=== PATIENT | male | born 1935 | race Caucasian/White ===

== ENCOUNTER 2019-11-27 11:38 | Inpatient (IN) | payer MEDICARE, OTHER ==
[2019-11-27] MEDS ORDERED: Acetaminophen 325 MG Tab PO PRN (12:30)
[2019-11-27] MEDS ORDERED: Ondansetron 4 MG Tab.DIS PO PRN (12:30)
[2019-11-27] MEDS ORDERED: Albuterol/Ipratropium 3.0-0.5 MG/3 ML Neb Soln NEB PRN (12:30)
[2019-11-27] MEDS ORDERED: Sodium Chloride 0.9% 10 ML Syringe FLUSH PRN (12:30)
[2019-11-27] MEDS ORDERED: Albuterol 0.083% 2.5 MG/3 ML Neb Soln NEB PRN (12:30)
[2019-11-27] MEDS ORDERED: Ondansetron 4 MG/2 ML SDV IVPUSH PRN (12:30)
[2019-11-27] MEDS ORDERED: TRIAMCINOLONE ACETONIDE 0.025% TOP PRN (13:01)
--- NOTE | 2019-11-27 13:30 | PCM.HP ---
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 Patient and report that he has been seen in clinic in [place] and was being worked up for cardiac etiology for his shortness of breath. Report that he had an echocardiogram in August of this year. Reports that he was started on Lasix and potassium replacement. States that he had significant constipation from the potassium so taking the Lasix about 3 weeks ago. States that his weight has been stable since that time and has remained with him at 3 pound range. He reports that he can barely walk 50 feet without stopping to catch his breath. States that he would get winded and has to rest for about 5 minutes before feeling better to be able to ambulate again. Reports intermittent cough without sputum production. Denies any weight gain, weight loss, chest pain, diaphoresis, neck pain, shoulder pain, fevers, chills, nausea, vomiting, diarrhea, dysuria, hematuria, edema, or any new symptoms. That he took medications for constipation for a few days but over the past 3 to 4 days, his bowels have been moving normally. #Tobacco, alcohol, or illicit drug use. In the clinic, patient was noted to have normal WBC count of 8.3, hemoglobin of 16.1, and platelet count of 219. His creatinine was at baseline of 1.7 with normal anion gap and CO2 of 28. Chest x-ray was obtained which showed consolidation throughout the right lung and to a lesser extent in the left lung base concerning for multifocal pneumonia. Also showed cardiomegaly without any pneumothorax. O2 saturation was in the 80s and required 2 L of oxygen to bring O2 saturation to 91. Patient was referred to us for admission. - Related Data Allergies/Adverse Reactions: Allergies Allergy/AdvReac Type Severity Reaction Status Date / Time No Known Allergies Allergy Verified 08/22/19 09:41 Home Medications: Home Meds Aspirin [Ecotrin] 81 mg PO DAILY 09/29/14 [History] Metoprolol Succinate [Toprol XL] 200 mg PO DAILY 09/29/14 [History] atorvaSTATin Calcium [Atorvastatin Calcium] 80 mg PO BEDTIME 09/29/14 [History] Docusate Sodium [Colace] 100 mg PO BEDTIME 11/27/19 [History] Furosemide 40 mg PO DAILY 11/27/19 [History] Triamcinolone Acetonide [Triamcinolone Acetonide 0.025%] 1 applic TOP ASDIRECTED PRN 11/27/19 [History] Warfarin Sodium [Jantoven] 2.5 mg PO DAILY 11/27/19 [History] Past Medical History HEENT History: Reports: Cataract, Hard of Hearing Cardiovascular History: Reports: Afib, CAD, Hypertension, AL, Stents Respiratory History: Reports: SOB Gastrointestinal History: Reports: Chronic Constipation, GI Bleed Genitourinary History: Reports: BPH, Urinary Incontinence Musculoskeletal History: Reports: Arthritis Neurological History: Reports: None Psychiatric History: Reports: None Endocrine/Metabolic History: Reports: Obesity/BMI 30+ Hematologic History: Reports: None Immunologic History: Reports: None Oncologic (Cancer) History: Reports: Malignant Melanoma, Prostate Dermatologic History: Reports: Psoriasis - Infectious Disease History Infectious Disease History: Reports: None - Past Surgical History Head Surgeries/Procedures: Reports: None HEENT Surgical History: Reports: Cataract Surgery Male Surgical History: Reports: TURP-Transurethral Resection of Prostate Social & Family History - Family History Family Medical History: Noncontributory H&P Review of Systems - Review of Systems: Review Of Systems: Comprehensive ROS is negative, except as noted in HPI. Exam - Exam Exam: See Below - Vital Signs Vital Signs: Last Vital Signs Temp 97.2 F 11/27/19 12:30 Pulse 71 11/27/19 12:30 Resp 24 H 11/27/19 12:30 BP 133/69 11/27/19 12:30 Pulse Ox 88 L 11/27/19 12:30 - Exam Quality Assessment: Supplemental Oxygen (2L via [place]) General: Alert, Oriented, Cooperative, Mild Distress HEENT: Conjunctiva Clear, Hearing Intact, Mucosa Moist & [place], Pupils Equal, Pupils Reactive, PERRLA Neck: Supple, Trachea Midline Lungs: Rhonchi (In right lung diffusely and in left lung base. ) Cardiovascular: Regular Rate, Irregular Rhythm GI/Abdominal Exam: Normal Bowel Sounds, Soft, Non-Tender, No Distention Extremities: Normal Inspection, Non-Tender, No Pedal Edema Peripheral Pulses: 2+: Radial (L), Radial (R), Dorsalis Pedis (L), Dorsalis Pedis (R) Skin: Warm, Dry, Intact Neurological: Cranial Nerves Intact Neuro Extensive - Mental Status: Alert, Oriented x3, Normal Mood/Affect, Normal Cognition, Memory Intact Psychiatric: Alert, Normal Affect, Normal Mood - Patient Data Tawanda Results Last 24 hrs: Microbiology 11/27/19 12:55 Anaerobic Blood Culture - Final Blood - Venous - Lab Draw *Q Meaningful Use (ADM) - VTE *Q VTE Anticoagulation Contraindications: Alternative TX Request PT - Problem List (1) Multifocal pneumonia SNOMED Code(s): 261364482 ICD Code: J18.9 - PNEUMONIA, UNSPECIFIED ORGANISM Status: Acute Current Visit: Yes (2) Acute respiratory failure with hypoxia SNOMED Code(s): 10574115, 366290621 ICD Code: J96.01 - ACUTE RESPIRATORY FAILURE WITH HYPOXIA Status: Acute Current Visit: Yes (3) CAD (coronary artery disease) SNOMED Code(s): 94764300 ICD Code: I25.10 - ATHSCL HEART DISEASE OF [place] CORONARY ARTERY W/O ANG PCTRS Status: Acute Current Visit: Yes (4) Diastolic heart failure SNOMED Code(s): 875027397 ICD Code: I50.30 - UNSPECIFIED DIASTOLIC (CONGESTIVE) HEART FAILURE Status : Acute Current Visit: Yes (5) Dyslipidemia SNOMED Code(s): 201182850 ICD Code: E78.5 - HYPERLIPIDEMIA, UNSPECIFIED Status: Acute Current Visit : Yes (6) Obesity SNOMED Code(s): 086488591, 079511576 ICD Code: E66.9 - OBESITY, UNSPECIFIED Status: Acute Current Visit: Yes (7) Atrial fibrillation SNOMED Code(s): 42541885 ICD Code: I48.91 - UNSPECIFIED ATRIAL FIBRILLATION Status: Acute Current Visit: Yes (8) Chronic anticoagulation SNOMED Code(s): 783896867 ICD Code: Z79.01 - USP (CURRENT) USE OF ANTICOAGULANTS Status: Acute Current Visit: Yes Problem List Initiated/Reviewed/Updated: Yes Orders Last 24hrs: Active Orders 24 hr Category Date Time Status Patient Status [ADT] Routine ADT 11/27/19 11:52 Active Height and Weight [RC] DAILY Care 11/27/19 12:30 Active Intake and Output [RC] QSHIFT Care 11/27/19 12:31 Active Oxygen Therapy [RC] .PRN Care 11/27/19 12:30 Active Peripheral IV Care [RC] . DIRECTED Care 11/27/19 12:32 Active RT Aerosol Therapy [RC] ASDIRECTED Care 11/27/19 12:33 Active Up With Assistance [RC] ASDIRECTED Care 11/27/19 12:30 Active VTE/DVT Education [RC] PER UNIT ROUTINE Care 11/27/19 12:30 Active Vital Signs [RC] Q4H Care 11/27/19 12:30 Active 2 Gram Sodium Diet [DIET] Diet 11/27/19 Lunch Active BASIC METABOLIC PANEL,BMP [CHEM] AM Lab 11/28/19 05:11 Ordered CBC W/O DIFF,HEMOGRAM [HEME] AM Lab 11/28/19 05:11 Ordered CULTURE BLOOD [BC] Stat Lab 11/27/19 12:53 Received CULTURE BLOOD [BC] Stat Lab 11/27/19 12:55 Results CULTURE SPUTUM + SMEAR [RM] Stat Lab 11/27/19 12:30 Ordered INR,PT,PROTHROMBIN TIME [COAG] DAILY Lab 11/28/19 06:00 Ordered INR,PT,PROTHROMBIN TIME [COAG] DAILY Lab 11/29/19 06:00 Ordered INR,PT,PROTHROMBIN TIME [COAG] DAILY Lab 11/30/19 06:00 Ordered INR,PT,PROTHROMBIN TIME [COAG] DAILY Lab 12/01/19 06:00 Ordered INR,PT,PROTHROMBIN TIME [COAG] DAILY Lab 12/02/19 06:00 Ordered INR,PT,PROTHROMBIN TIME [COAG] DAILY Lab 12/03/19 06:00 Ordered INR,PT,PROTHROMBIN TIME [COAG] DAILY Lab 12/04/19 06:00 Ordered Acetaminophen [Tylenol] Med 11/27/19 12:30 Active 650 mg PO Q6H PRN Albuterol [Proventil Neb Soln] Med 11/27/19 12:30 Active 2.5 mg NEB Q2H PRN Albuterol/Ipratropium [DuoNeb 3.0-0.5 MG/3 ML] Med 11/27/19 12:30 Active 3 ml NEB Q4H PRN Aspirin [Halfprin] Med 11/28/19 09:00 Ordered 81 mg PO DAILY Azithromycin [Zithromax] 500 mg Med 11/27/19 13:00 Active Sodium Chloride 0.9% [Normal Saline (AdvBag)] 250 ml IV Q24H Docusate Sodium [Colace] Med 11/27/19 21:00 Ordered 100 mg PO BEDTIME Docusate Sodium/Sennosides [Senna Plus] Med 11/27/19 12:30 Active 1 tab PO BEDTIME PRN Furosemide [Lasix] Med 11/28/19 09:00 Ordered 40 mg PO DAILY Metoprolol Succinate [Toprol XL] Med 11/28/19 09:00 Ordered 200 mg PO DAILY Ondansetron [Zofran ODT] Med 11/27/19 12:30 Active 4 mg PO Q6H PRN Ondansetron [Zofran] Med 11/27/19 12:30 Active 4 mg IVPUSH Q6H PRN Pharmacy to Dose - Warfarin Med 11/27/19 13:15 Ordered 1 dose .XX ASDIRECTED Sodium Chloride 0.9% [Saline Flush] Med 11/27/19 12:30 Active 10 ml FLUSH ASDIRECTED PRN Triamcinolone Acetonide [Triamcinolone Acetonide 0.025% Med 11/27/19 13:01 Ordered ] 1 applic TOP ASDIRECTED PRN atorvaSTATin Calcium [Atorvastatin Calcium] Med 11/27/19 21:00 Ordered 80 mg PO BEDTIME cefTRIAXone [Rocephin] 1 gm Med 11/27/19 14:00 Active Sodium Chloride 0.9% [Normal Saline] 50 ml IV Q24H Anticoagulation Contraindications VTE [AST] Per Unit Oth 11/27/19 12:30 Ordered Routine Blood Culture x2 Reflex Set [OM.PC] Stat Oth 11/27/19 12:30 Ordered Peripheral IV Insertion Adult [OM.PC] Routine Oth 11/27/19 12:30 Ordered Resuscitation Status Routine Resus Stat 11/27/19 12:30 Ordered Medication Orders Acetaminophen (Tylenol) 650 mg PO Q6H PRN PRN Reason: Pain (Mild 1-3)/fever Albuterol (Proventil Neb Soln) 2.5 mg NEB Q2H PRN PRN Reason: shortness of breath/wheezing Albuterol/Ipratropium (Duoneb 3.0-0.5 Mg/3 Ml) 3 ml NEB Q4H PRN PRN Reason: shortness of breath/wheezing Aspirin (Halfprin) 81 mg PO DAILY [facility] Furosemide (Lasix) 40 mg PO DAILY [facility] Azithromycin 500 mg/ Sodium (Chloride) 250 mls @ 250 mls/hr IV Q24H [facility] Ceftriaxone Sodium 1 gm/ (Sodium Chloride) 50 mls @ 100 mls/hr IV Q24H [facility] Non-Formulary Medication (Atorvastatin Calcium [Atorvastatin Calcium]) 80 mg PO BEDTIME ZOE Non-Formulary Medication (Docusate Sodium [Colace]) 100 mg PO BEDTIME ZOE Non-Formulary Medication (Metoprolol Succinate [Toprol Xl]) 200 mg PO DAILY ZOE Non-Formulary Medication (Triamcinolone Acetonide [Triamcinolone Acetonide 0.025 %]) 1 applic TOP ASDIRECTED PRN PRN Reason: Dryness Ondansetron HCl (Zofran) 4 mg IVPUSH Q6H PRN PRN Reason: Nausea/Vomiting Ondansetron HCl (Zofran Odt) 4 mg PO Q6H PRN PRN Reason: nausea, able to take PO Senna/Docusate Sodium (Senna Plus) 1 tab PO BEDTIME PRN PRN Reason: Constipation Sodium Chloride (Saline Flush) 10 ml FLUSH ASDIRECTED PRN PRN Reason: Keep Vein Open Warfarin Sodium (Pharmacy To Dose - Warfarin) 1 dose .XX ASDIRECTED [facility] Assessment/Plan Comment:: #Multifocal pneumonia #Acute respiratory with hypoxia patient with auscultation throughout the right lung and consolidation in the left lung base concerning for multifocal pneumonia. With associated hypoxia, responded to O2 via nasal cannula Obtain blood cultures Sputum culture Incentive spirometer and flutter valve Start azithromycin and Zosyn Supplemental oxygen, titrate SPO2 greater than 90% CT chest to better characterize lung is given duration of his respiratory symptoms #Atrial fibrillation #On chronic anticoagulation F Continue beta-milton and have pharmacy dose warfarin #CAD #Diastolic heart failure Hypertension #Dyslipidemia Continue medications DVT prophylaxis: On warfarin GI prophylaxis: Cardiac diet CODE STATUS: Full code per patient preference.
[2019-11-27] MEDS: cefTRIAXone 1 GM in Sodium Chloride 0.9% 50 ML IV SCH (13:38)
[2019-11-27] MEDS: Azithromycin 500 MG in Sodium Chloride 0.9% 250 ML IV SCH (14:07)
--- NOTE | 2019-11-27 15:13 | CT ---
EXAMINATION: Chest wo Cont SEX: Male AGE: 84 years CLINICAL HISTORY: 84-year-old male with prostate cancer and "RESPIRATORY FAILURE". No previous CXR or CT scans of the chest immediately available at this institution. Scan technique: Volume acquisition of data screening unenhanced CT scan of the chest (bony thorax, lungs and mediastinum) obtained without oral or IV contrast while patient was lying supine on the Siemens multislice scanner [place], [place]. All data archived in the PACS system for storage, reformatting axial/sagittal/coronal planes and study. Interpretation: ABNORMAL. 1. *Extensive, multilobular confluent "groundglass" density involving both lung mcgregor (R>L). Underlying air bronchograms and some "shotty" mediastinal lymphadenopathy. Fever? Cough? Acute abnormality like Covid 19 infection a differential consideration with chronic interstitial lung disease. Clinical correlation? 2. No dependent pleural effusion. No atelectasis, collapse or pneumothorax. 3. Coronary artery calcifications. Mild cardiomegaly. No pulmonary vascular congestion/cephalization of flow or alveolar edema i.e no indication of heart failure or CHF. 4. Atheromatous calcifications normal caliber thoracic aorta. Patulous esophagus. Arthritic spine. 5. No suspicious lung nodules or mass lesion. 6. Gallbladder, unenhanced liver, stomach, spleen, and pancreas are unremarkable. CONCLUSION: Suspicious, multilobar "groundglass" appearance lung mcgregor (see above). No indication heart failure or lung malignancy.
[2019-11-27] MEDS: atorvaSTATin 20 MG Tab PO SCH (20:55)
[2019-11-27] MEDS: Docusate Sodium 100 MG Cap PO SCH (21:01)
[2019-11-28 06:58] LABS: ANION GAP 10.6 mEq/L (7-13)
[2019-11-28] MEDS: Aspirin 81 MG Tab.EC PO SCH (08:30)
[2019-11-28] MEDS: Metoprolol Succinate 50 MG Tab.ER PO SCH (08:30)
[2019-11-28] MEDS: Furosemide 40 MG Tab PO SCH (08:30)
--- NOTE | 2019-11-28 09:18 | PCM.PN ---
- General Info Date of Service: 11/28/19 Admission Dx/Problem (Free Text): Admission Diagnosis/Problem Admission Diagnosis/Problem Pneumonia Subjective Update: Patient continues to require oxygen, now between 4 to 5 L to keep O2 saturations above 92%. Reports decreased cough. Has not been able to provide adequate sputum sample. He denies fevers, chills, nausea, vomiting, diarrhea, constipation, dysuria, hematuria, edema, or any new symptoms. - Patient Data Vitals - Most Recent: Last Vital Signs Temp 98.7 F 11/28/19 07:49 Pulse 76 11/28/19 08:30 Resp 24 H 11/28/19 07:49 BP 101/62 11/28/19 08:30 Pulse Ox 90 L 11/28/19 07:49 Weight - Most Recent: 232 lb 9.6 oz I&O - Last 24 Hours: Intake & Output 11/27/19 11/28/19 11/28/19 22:59 06:59 14:59 Intake Total 488 200 Output Total 600 200 Balance -112 0 Lab Results Last 24 Hours: Laboratory Results - last 24 hr 11/27/19 11/28/19 11/28/19 Range/Units 19:40 06:10 06:10 WBC 8.2 (5.0-10.0) 10^3/uL RBC 4.02 L (4.6-6.2) 10^6/uL Hgb 13.9 L D (14.0-18.0) g/dL Hct 41.7 (40.0-54.0) % MCV 103.7 H D (80-100) fL MCH 34.6 H (27.0-34.0) pg MCHC 33.3 (33.0-35.0) g/dL Plt Count 178 D (150-450) 10^3/uL PT (9.0-12.0) SEC INR (0.9-1.2) Sodium 141 (136-145) mmol/L Potassium 4.6 (3.5-5.1) mmol/L Chloride 107 (98-107) mmol/L Carbon Dioxide 28 (21-32) mmol/L Anion Gap 10.6 (7-13) mEq/L BUN 37 H (7-18) mg/dL Creatinine 1.56 H (0.70-1.30) mg/dL Est Cr Clr Drug Dosing 38.69 mL/min Estimated GFR (MDRD) 43 Glucose 85 (74-99) mg/dL Calcium 8.2 L (8.5-10.1) mg/dL SARS-CoV-2 RNA (RT-PCR) Negative (NEGATIVE) 11/28/19 Range/Units 06:10 WBC (5.0-10.0) 10^3/uL RBC (4.6-6.2) 10^6/uL Hgb (14.0-18.0) g/dL Hct (40.0-54.0) % MCV (80-100) fL MCH (27.0-34.0) pg MCHC (33.0-35.0) g/dL Plt Count (150-450) 10^3/uL PT 32.0 H D (9.0-12.0) SEC INR 3.4 H (0.9-1.2) Sodium (136-145) mmol/L Potassium (3.5-5.1) mmol/L Chloride (98-107) mmol/L Carbon Dioxide (21-32) mmol/L Anion Gap (7-13) mEq/L BUN (7-18) mg/dL Creatinine (0.70-1.30) mg/dL Est Cr Clr Drug Dosing mL/min Estimated GFR (MDRD) Glucose (74-99) mg/dL Calcium (8.5-10.1) mg/dL SARS-CoV-2 RNA (RT-PCR) (NEGATIVE) Tawanda Results Last 24 Hours: Microbiology 11/27/19 12:55 Anaerobic Blood Culture - Final Blood - Venous - Lab Draw Med Orders - Current: Current Medications Acetaminophen (Tylenol) 650 mg PO Q6H PRN PRN Reason: Pain (Mild 1-3)/fever Albuterol (Proventil Neb Soln) 2.5 mg NEB Q2H PRN PRN Reason: shortness of breath/wheezing Albuterol/Ipratropium (Duoneb 3.0-0.5 Mg/3 Ml) 3 ml NEB Q4H PRN PRN Reason: shortness of breath/wheezing Last Admin: 11/27/19 13:40 Dose: 3 ml Aspirin (Halfprin) 81 mg PO DAILY ZOE Last Admin: 11/28/19 08:30 Dose: 81 mg Atorvastatin Calcium (Lipitor) 80 mg PO BEDTIME ZOE Last Admin: 11/27/19 20:55 Dose: 80 mg Docusate Sodium (Colace) 100 mg PO BEDTIME [facility] Last Admin: 11/27/19 21:01 Dose: 100 mg Furosemide (Lasix) 40 mg PO DAILY [facility] Last Admin: 11/28/19 08:30 Dose: 40 mg Azithromycin 500 mg/ Sodium (Chloride) 250 mls @ 250 mls/hr IV Q24H [facility] Last Infusion: 11/27/19 17:05 Dose: Infused Ceftriaxone Sodium 1 gm/ (Sodium Chloride) 50 mls @ 100 mls/hr IV Q24H [facility] Last Admin: 11/27/19 13:38 Dose: 100 mls/hr Metoprolol Succinate (Toprol Xl) 200 mg PO DAILY [facility] Last Admin: 11/28/19 08:30 Dose: 200 mg Triamcinolone Acetonide 0.025% Pt Own Med 0 applic TOP DAILY PRN PRN Reason: Dryness Ondansetron HCl (Zofran) 4 mg IVPUSH Q6H PRN PRN Reason: Nausea/Vomiting Ondansetron HCl (Zofran Odt) 4 mg PO Q6H PRN PRN Reason: nausea, able to take PO Senna/Docusate Sodium (Senna Plus) 1 tab PO BEDTIME PRN PRN Reason: Constipation Sodium Chloride (Saline Flush) 10 ml FLUSH ASDIRECTED PRN PRN Reason: Keep Vein Open Warfarin Sodium (Pharmacy To Dose - Warfarin) 1 dose .XX ASDIRECTED ZOE - Exam Quality Assessment: Supplemental Oxygen (4.5L via nasal canula) General: Alert, Cooperative, No Acute Distress HEENT: Pupils Equal, Pupils Reactive, Mucous Membr. Moist/[place] Neck: Supple, Trachea Midline Lungs: Rhonchi (throughout right lung and in mid to lower left lung. ) Cardiovascular: Regular Rate, Regular Rhythm GI/Abdominal Exam: Normal Bowel Sounds, Soft, Non-Tender, No Distention Extremities: Normal Inspection, Non-Tender, No Pedal Edema Peripheral Pulses: 2+: Radial (L), Radial (R) Skin: Warm, Dry, Intact Neurological: No New Focal Deficit Psy/Mental Status: Alert, Normal Affect, Normal Mood Sepsis Event Note - Evaluation Sepsis Screening Result: No Definite Risk - Focused Exam Vital Signs: Vital Signs Temp Pulse Pulse Resp BP BP BP 11/28/19 08:30 76 101/62 11/28/19 07:49 98.7 F 76 24 H 101/62 11/28/19 06:30 24 H 11/28/19 03:30 99.2 F 72 24 H 122/84 11/27/19 22:30 99 F 60 24 H 93/61 Pulse Ox 11/28/19 08:30 11/28/19 07:49 90 L 11/28/19 06:30 96 11/28/19 03:30 92 L 11/27/19 22:30 95 Date Exam was Performed: 11/28/19 Time Exam was Performed: 09:13 - Problem List & Annotations (1) Multifocal pneumonia SNOMED Code(s): 463088660 Code(s): J18.9 - PNEUMONIA, UNSPECIFIED ORGANISM Status: Acute Current Visit: Yes (2) Acute respiratory failure with hypoxia SNOMED Code(s): 05456214, 414189593 Code(s): J96.01 - ACUTE RESPIRATORY FAILURE WITH HYPOXIA Status: Acute Current Visit: Yes (3) CAD (coronary artery disease) SNOMED Code(s): 47447071 Code(s): I25.10 - ATHSCL HEART DISEASE OF [place] CORONARY ARTERY W/O ANG PCTRS Status: Acute Current Visit: Yes (4) Diastolic heart failure SNOMED Code(s): 783019243 Code(s): I50.30 - UNSPECIFIED DIASTOLIC (CONGESTIVE) HEART FAILURE Status: Acute Current Visit: Yes (5) Dyslipidemia SNOMED Code(s): 566082106 Code(s): E78.5 - HYPERLIPIDEMIA, UNSPECIFIED Status: Acute Current Visit : Yes (6) Obesity SNOMED Code(s): 502407900, 505839911 Code(s): E66.9 - OBESITY, UNSPECIFIED Status: Acute Current Visit: Yes (7) Atrial fibrillation SNOMED Code(s): 78687572 Code(s): I48.91 - UNSPECIFIED ATRIAL FIBRILLATION Status: Acute Current Visit: Yes (8) Chronic anticoagulation SNOMED Code(s): 209258126 Code(s): Z79.01 - [facility] (CURRENT) USE OF ANTICOAGULANTS Status: Acute Current Visit: Yes - Problem List Review Problem List Initiated/Reviewed/Updated: Yes - My Orders Last 24 Hours: My Active Orders 11/27/19 11:52 Patient Status [ADT] Routine 11/27/19 12:30 Height and Weight [RC] .0600 Oxygen Therapy [RC] .PRN Up With Assistance [RC] ASDIRECTED VTE/DVT Education [RC] PER UNIT ROUTINE Vital Signs [RC] 00,04,08,,, CULTURE SPUTUM + SMEAR [RM] Stat Acetaminophen [Tylenol] 650 mg PO Q6H PRN Albuterol [Proventil Neb Soln] 2.5 mg NEB Q2H PRN Albuterol/Ipratropium [DuoNeb 3.0-0.5 MG/3 ML] 3 ml NEB Q4H PRN Docusate Sodium/Sennosides [Senna Plus] 1 tab PO BEDTIME PRN Ondansetron [Zofran ODT] 4 mg PO Q6H PRN Ondansetron [Zofran] 4 mg IVPUSH Q6H PRN Sodium Chloride 0.9% [Saline Flush] 10 ml FLUSH ASDIRECTED PRN Anticoagulation Contraindications VTE [AST] Per Unit Routine Blood Culture x2 Reflex Set [OM.PC] Stat Peripheral IV Insertion Adult [OM.PC] Routine Resuscitation Status Routine 11/27/19 12:31 Intake and Output [RC] QSHIFT 11/27/19 12:32 Peripheral IV Care [RC] ,11/27/19 12:33 RT Aerosol Therapy [RC] ASDIRECTED 11/27/19 12:53 CULTURE BLOOD [BC] Stat 11/27/19 12:55 CULTURE BLOOD [BC] Stat 11/27/19 13:00 Azithromycin [Zithromax] 500 mg Sodium Chloride 0.9% [Normal Saline (AdvBag)] 250 ml IV Q24H 11/27/19 13:01 Triamcinolone Acetonide [Triamcinolone Acetonide 0.025%] 0 applic TOP DAILY PRN 11/27/19 13:15 Pharmacy to Dose - Warfarin 1 dose .XX ASDIRECTED 11/27/19 14:00 cefTRIAXone [Rocephin] 1 gm Sodium Chloride 0.9% [Normal Saline] 50 ml IV Q24H 11/27/19 21:00 Docusate Sodium [Colace] 100 mg PO BEDTIME atorvaSTATin [Lipitor] 80 mg PO BEDTIME 11/27/19 Lunch 2 Gram Sodium Diet [DIET] 11/28/19 08:16 Flutter Valve Therapy [RT Chest Physiotherapy] [RC] ASDIRECTED 11/28/19 08:20 IS (RT) [RT Incentive Spirometry] [RC] ASDIRECTED 11/28/19 09:00 Aspirin [Halfprin] 81 mg PO DAILY Furosemide [Lasix] 40 mg PO DAILY Metoprolol Succinate [Toprol XL] 200 mg PO DAILY 11/29/19 06:00 INR,PT,PROTHROMBIN TIME [COAG] DAILY 11/30/19 06:00 INR,PT,PROTHROMBIN TIME [COAG] DAILY 12/01/19 06:00 INR,PT,PROTHROMBIN TIME [COAG] DAILY 12/02/19 06:00 INR,PT,PROTHROMBIN TIME [COAG] DAILY 12/03/19 06:00 INR,PT,PROTHROMBIN TIME [COAG] DAILY 12/04/19 06:00 INR,PT,PROTHROMBIN TIME [COAG] DAILY - Plan Plan:: #Multifocal pneumonia #Acute respiratory with hypoxia patient with auscultation throughout the right lung and consolidation in the left lung base concerning for multifocal pneumonia. With associated hypoxia, responded to O2 via nasal cannula Follow up on blood cultures Unable to produce sputum culture Incentive spirometer and flutter valve Continue azithromycin and Zosyn Supplemental oxygen, titrate SPO2 greater than 90% #Atrial fibrillation #On chronic anticoagulation F Continue beta-milton and have pharmacy dose warfarin #CAD #Diastolic heart failure #Hypertension #Dyslipidemia Continue medications DVT prophylaxis: On warfarin GI prophylaxis: Cardiac diet CODE STATUS: Full code per patient preference.
[2019-11-28] MEDS: Azithromycin 500 MG in Sodium Chloride 0.9% 250 ML IV SCH (13:34)
[2019-11-28] MEDS: cefTRIAXone 1 GM in Sodium Chloride 0.9% 50 ML IV SCH (15:07)
[2019-11-28] MEDS: Docusate Sodium 100 MG Cap PO SCH (20:43)
[2019-11-28] MEDS: atorvaSTATin 20 MG Tab PO SCH (20:43)
[2019-11-29] MEDS: Metoprolol Succinate 50 MG Tab.ER PO SCH (09:08)
[2019-11-29] MEDS: Aspirin 81 MG Tab.EC PO SCH (09:08)
[2019-11-29] MEDS: Furosemide 40 MG Tab PO SCH (09:08)
--- NOTE | 2019-11-29 10:25 | PCM.PN ---
- General Info Date of Service: 11/29/19 - Review of Systems General: Reports: Malaise HEENT: Reports: No Symptoms Pulmonary: Reports: Shortness of Breath, Cough Cardiovascular: Reports: No Symptoms Gastrointestinal: Reports: No Symptoms - Patient Data Vitals - Most Recent: Last Vital Signs Temp 36.1 C 11/29/19 08:00 Pulse 74 11/29/19 09:08 Resp 22 H 11/29/19 08:00 BP 116/78 11/29/19 09:08 Pulse Ox 96 11/29/19 08:00 Weight - Most Recent: 105.506 kg I&O - Last 24 Hours: Intake & Output 11/28/19 11/29/19 11/29/19 22:59 06:59 14:59 Intake Total 680 440 Balance 680 440 Lab Results Last 24 Hours: Laboratory Results - last 24 hr 11/29/19 Range/Units 06:25 PT 21.7 H D (9.0-12.0) SEC INR 2.3 H (0.9-1.2) Tawanda Results Last 24 Hours: Microbiology 11/27/19 12:55 Aerobic Blood Culture - Preliminary Blood - Venous - Lab Draw NO GROWTH AFTER 1 DAY Anaerobic Blood Culture - Final 11/27/19 12:53 Aerobic Blood Culture - Preliminary Blood - Venous NO GROWTH AFTER 1 DAY Anaerobic Blood Culture - Preliminary NO GROWTH AFTER 1 DAY Med Orders - Current: Current Medications Acetaminophen (Tylenol) 650 mg PO Q6H PRN PRN Reason: Pain (Mild 1-3)/fever Albuterol (Proventil Neb Soln) 2.5 mg NEB Q2H PRN PRN Reason: shortness of breath/wheezing Albuterol/Ipratropium (Duoneb 3.0-0.5 Mg/3 Ml) 3 ml NEB Q4H PRN PRN Reason: shortness of breath/wheezing Last Admin: 11/27/19 13:40 Dose: 3 ml Documented by: Aspirin (Halfprin) 81 mg PO DAILY REPLACED BY [facility] Last Admin: 11/29/19 09:08 Dose: 81 mg Documented by: Atorvastatin Calcium (Lipitor) 80 mg PO BEDTIME REPLACED BY [facility] Last Admin: 11/28/19 20:43 Dose: 80 mg Documented by: Docusate Sodium (Colace) 100 mg PO BEDTIME REPLACED BY [facility] Last Admin: 11/28/19 20:43 Dose: 100 mg Documented by: Furosemide (Lasix) 40 mg PO DAILY REPLACED BY [facility] Last Admin: 11/29/19 09:08 Dose: 40 mg Documented by: Azithromycin 500 mg/ Sodium (Chloride) 250 mls @ 250 mls/hr IV Q24H REPLACED BY [facility] Last Infusion: 11/28/19 14:44 Dose: Infused Documented by: Ceftriaxone Sodium 1 gm/ (Sodium Chloride) 50 mls @ 100 mls/hr IV Q24H REPLACED BY [facility] Last Infusion: 11/28/19 15:38 Dose: Infused Documented by: Metoprolol Succinate (Toprol Xl) 200 mg PO DAILY REPLACED BY [facility] Last Admin: 11/29/19 09:08 Dose: 200 mg Documented by: Triamcinolone Acetonide 0.025% Pt Own Med 0 applic TOP DAILY PRN PRN Reason: Dryness Ondansetron HCl (Zofran) 4 mg IVPUSH Q6H PRN PRN Reason: Nausea/Vomiting Ondansetron HCl (Zofran Odt) 4 mg PO Q6H PRN PRN Reason: nausea, able to take PO Senna/Docusate Sodium (Senna Plus) 1 tab PO BEDTIME PRN PRN Reason: Constipation Sodium Chloride (Saline Flush) 10 ml FLUSH ASDIRECTED PRN PRN Reason: Keep Vein Open Last Admin: 11/28/19 13:34 Dose: 10 ml Documented by: Warfarin Sodium (Pharmacy To Dose - Warfarin) 1 dose .XX ASDIRECTED REPLACED BY [facility] Warfarin Sodium (Coumadin) 2 mg PO ONETIME ONE Stop: 11/29/19 14:01 Discontinued Medications No Warfarin (Today ) 0 each PO ONETIME ONE Stop: 11/28/19 14:01 Last Admin: 11/28/19 13:49 Dose: Not Given Documented by: - Exam General: Alert, Oriented, Cooperative Neck: Supple Lungs: Decreased Breath Sounds Cardiovascular: Regular Rate, Regular Rhythm GI/Abdominal Exam: Normal Bowel Sounds, Soft, Non-Tender, No Organomegaly, No Di stention, No Abnormal Bruit, No Mass, Pelvis Stable Sepsis Event Note - Evaluation Sepsis Screening Result: No Definite Risk - Focused Exam Vital Signs: Vital Signs Temp Pulse Pulse Resp BP BP Pulse Ox 11/29/19 09:08 74 116/78 11/29/19 08:00 36.1 C 74 22 H 116/78 96 Date Exam was Performed: 11/29/19 Time Exam was Performed: 10:20 - Problem List Review Problem List Initiated/Reviewed/Updated: Yes - Plan Plan:: #Multifocal pneumonia #Acute respiratory with hypoxia patient with auscultation throughout the right lung and consolidation in the left lung base concerning for multifocal pneumonia. With associated hypoxia, responded to O2 via nasal cannula Follow up on blood cultures Unable to produce sputum culture Incentive spirometer and flutter valve I suspect this is more likely a chronic process. Not likely simple community- acquired pneumonia. If patient does not make adequate progress I will transfer to higher level of care. #Atrial fibrillation #On chronic anticoagulation F Continue beta-milton and have pharmacy dose warfarin #CAD #Diastolic heart failure Does not seem to be in congestive heart failure at this point #Hypertension #Dyslipidemia Continue medications DVT prophylaxis: On warfarin GI prophylaxis: Cardiac diet CODE STATUS: Full code per patient preference.
[2019-11-29] MEDS: Azithromycin 500 MG in Sodium Chloride 0.9% 250 ML IV SCH (12:37)
[2019-11-29] MEDS: cefTRIAXone 1 GM in Sodium Chloride 0.9% 50 ML IV SCH (13:48)
[2019-11-29] MEDS ORDERED: Warfarin 2 MG Tab PO ONE (14:00)
[2019-11-29] MEDS: Docusate Sodium 100 MG Cap PO SCH (21:30)
[2019-11-29] MEDS: atorvaSTATin 20 MG Tab PO SCH (21:30)
[2019-11-30] MEDS: Furosemide 40 MG Tab PO SCH (09:08)
[2019-11-30] MEDS: Aspirin 81 MG Tab.EC PO SCH (09:08)
[2019-11-30] MEDS: Metoprolol Succinate 50 MG Tab.ER PO SCH (09:08)
[2019-11-30 09:09] VITALS: BP 129/90; PULSE 64
[2019-11-30] MEDS ORDERED: Furosemide 40 MG/4 ML VIAL IVPUSH ONE (09:32)
--- NOTE | 2019-11-30 10:12 | PCM.DCSUM1 ---
Discharge Summary - Hospital Course Free Text/Narrative:: The patient was admitted with worsening shortness of breath which has been going on for the past 2 months. He had a CT scan that showed bilateral pulmonary infiltrates. He was started on intravenous antibiotics and did not improve. Continues to require significant oxygen up to 4 L/m. The patient will be transferred to higher level of care for further evaluation by pulmonary and infectious disease. Final diagnosis Acute hypoxemic respiratory failure Bilateral pneumonia Atrial fibrillation Congestive heart failure Diagnosis: Stroke: No - Discharge Data Discharge Date: 11/30/19 Discharge Disposition: DC/Tfer to Acute Hospital 02 Condition: Good - Referral to Home Health Primary Care Physician: Taisha Guerrero [employer] - Discharge Plan Home Medications: Home Meds Aspirin [Ecotrin] 81 mg PO DAILY 09/29/14 [History] Metoprolol Succinate [Toprol XL] 200 mg PO DAILY 09/29/14 [History] atorvaSTATin Calcium [Atorvastatin Calcium] 80 mg PO BEDTIME 09/29/14 [History] Docusate Sodium [Colace] 100 mg PO BEDTIME 11/27/19 [History] Furosemide 40 mg PO DAILY 11/27/19 [History] Triamcinolone Acetonide [Triamcinolone Acetonide 0.025%] 1 applic TOP ASDIRECTED PRN 11/27/19 [History] Warfarin Sodium [Jantoven] 2.5 mg PO DAILY 11/27/19 [History] - Discharge Summary/Plan Comment DC Time >30 min.: No - Review of Systems General: Reports: Malaise Pulmonary: Reports: Shortness of Breath, Cough Cardiovascular: Reports: Dyspnea on Exertion Gastrointestinal: Reports: No Symptoms Genitourinary: Reports: No Symptoms Musculoskeletal: Reports: No Symptoms - Patient Data Vitals - Most Recent: Last Vital Signs Temp 36.4 C 11/30/19 08:00 Pulse 64 11/30/19 09:08 Resp 22 H 11/30/19 08:00 BP 129/90 11/30/19 09:08 Pulse Ox 93 L 11/30/19 08:00 Weight - Most Recent: 106.594 kg I&O - Last 24 hours: Intake & Output 11/29/19 11/30/19 11/30/19 22:59 06:59 14:59 Intake Total 260 480 Balance 260 480 Lab Results - Last 24 hrs: Laboratory Results - last 24 hr 11/30/19 Range/Units 06:35 PT 17.7 H (9.0-12.0) SEC INR 1.9 H (0.9-1.2) PAUL Results - Last 24 hrs: Microbiology 11/27/19 12:55 Aerobic Blood Culture - Preliminary Blood - Venous - Lab Draw NO GROWTH AFTER 2 DAYS Anaerobic Blood Culture - Final 11/27/19 12:53 Aerobic Blood Culture - Preliminary Blood - Venous NO GROWTH AFTER 2 DAYS Anaerobic Blood Culture - Preliminary NO GROWTH AFTER 2 DAYS Med Orders - Current: Current Medications Acetaminophen (Tylenol) 650 mg PO Q6H PRN PRN Reason: Pain (Mild 1-3)/fever Albuterol (Proventil Neb Soln) 2.5 mg NEB Q2H PRN PRN Reason: shortness of breath/wheezing Albuterol/Ipratropium (Duoneb 3.0-0.5 Mg/3 Ml) 3 ml NEB Q4H PRN PRN Reason: shortness of breath/wheezing Last Admin: 11/27/19 13:40 Dose: 3 ml Documented by: Aspirin (Halfprin) 81 mg PO DAILY [facility] Last Admin: 11/30/19 09:08 Dose: 81 mg Documented by: Atorvastatin Calcium (Lipitor) 80 mg PO BEDTIME [facility] Last Admin: 11/29/19 21:30 Dose: 80 mg Documented by: Docusate Sodium (Colace) 100 mg PO BEDTIME [facility] Last Admin: 11/29/19 21:30 Dose: 100 mg Documented by: Furosemide (Lasix) 40 mg PO DAILY [facility] Last Admin: 11/30/19 09:08 Dose: 40 mg Documented by: Azithromycin 500 mg/ Sodium (Chloride) 250 mls @ 250 mls/hr IV Q24H [facility] Last Infusion: 11/29/19 13:50 Dose: Infused Documented by: Ceftriaxone Sodium 1 gm/ (Sodium Chloride) 50 mls @ 100 mls/hr IV Q24H [facility] Last Admin: 11/29/19 13:48 Dose: 100 mls/hr Documented by: Metoprolol Succinate (Toprol Xl) 200 mg PO DAILY [facility] Last Admin: 11/30/19 09:08 Dose: 200 mg Documented by: Triamcinolone Acetonide 0.025% Pt Own Med 0 applic TOP DAILY PRN PRN Reason: Dryness Ondansetron HCl (Zofran) 4 mg IVPUSH Q6H PRN PRN Reason: Nausea/Vomiting Ondansetron HCl (Zofran Odt) 4 mg PO Q6H PRN PRN Reason: nausea, able to take PO Senna/Docusate Sodium (Senna Plus) 1 tab PO BEDTIME PRN PRN Reason: Constipation Sodium Chloride (Saline Flush) 10 ml FLUSH ASDIRECTED PRN PRN Reason: Keep Vein Open Last Admin: 11/28/19 13:34 Dose: 10 ml Documented by: Warfarin Sodium (Pharmacy To Dose - Warfarin) 1 dose .XX ASDIRECTED ZOE Warfarin Sodium (Coumadin) 2 mg PO ONETIME ONE Stop: 11/30/19 14:01 Discontinued Medications Furosemide (Lasix) 40 mg IVPUSH NOW ONE Stop: 11/30/19 09:33 No Warfarin (Today ) 0 each PO ONETIME ONE Stop: 11/28/19 14:01 Last Admin: 11/28/19 13:49 Dose: Not Given Documented by: Warfarin Sodium (Coumadin) 2 mg PO ONETIME ONE Stop: 11/29/19 14:01 Last Admin: 11/29/19 13:49 Dose: 2 mg Documented by: - Exam Quality Assessment: Reports: Supplemental Oxygen General: Reports: Alert, Oriented, Cooperative Neck: Reports: Supple Lungs: Reports: Clear to Auscultation Cardiovascular: Reports: Regular Rate, Regular Rhythm GI/Abdominal Exam: Normal Bowel Sounds, Soft, Non-Tender, No Organomegaly, No Distention, No Abnormal Bruit, No Mass, Pelvis Stable (Male) Exam: No Hernia, Normal Inspection, Normal Prostate, Circumcised Skin: Reports: Warm, Dry *Q Meaningful Use (DIS) - VTE *Q VTE Anticoagulation Contraindications: Alternative [place] Request PT
[2019-11-30] MEDS ORDERED: Warfarin 2 MG Tab PO ONE (14:00)
== END 2019-11-30 11:20 | DRG 193 ==
LOC: DL.MS 11:52
PROVIDERS: ADMIT Internal Medicine; ATTEND Internal Medicine
DX: J18.9 Pneumonia, unspecified organism (principal); J96.01 Acute respiratory failure with hypoxia; I50.31 Acute diastolic (congestive) heart failure; I25.10 Atherosclerotic heart disease of native coronary artery without angina pectoris; E78.5 Hyperlipidemia, unspecified; Z20.828 Contact with and (suspected) exposure to other viral communicable diseases; E66.9 Obesity, unspecified; I48.91 Unspecified atrial fibrillation; I11.0 Hypertensive heart disease with heart failure; I73.9 Peripheral vascular disease, unspecified; N40.0 Benign prostatic hyperplasia without lower urinary tract symptoms; K59.09 Other constipation; M19.90 Unspecified osteoarthritis, unspecified site; Z79.01 Long term (current) use of anticoagulants; I25.2 Old myocardial infarction; Z79.82 Long term (current) use of aspirin; Z79.899 Other long term (current) drug therapy; Z95.5 Presence of coronary angioplasty implant and graft
CPT/HCPCS: 36415; 71250; 80048; 85027; 85610; 87040; A9270-GY; J0456; J0696; J1940; J7050; J7620-GY; U0002